=== PATIENT | female | born 1935 | race Caucasian/White ===

== ENCOUNTER 2016-12-22 10:15 | Emergency (ER) | payer OTHER, BC ==
[~2016-12-22] VITALS: Ht 152.4 cm; Wt 45.4 kg
[~2016-12-22 10:15] MED LIST: ACETAMINOPHEN325 M1 PO; ALENDRONATE SOD70 MG PO; AMBIEN 5 MG TABL5 M1 PO; AMLODIPINE BESYL5 MG PO; AMOXICILLIN 25250 M1; APAP500 PO; ASPIR 8181 MG PO; ATIVAN0.5 MG PO; BUDEPRION XL300 MG PO; BUPROPION HCL200 MG PO; BUPROPION XL300 MG PO; BUSPAR 5 MG TABL5 M1; BUSPAR 5 MG TABL5 M1 PO; BUSPAR15 MG PO; BUSPIRONE HCL10 MG PO; CARDURA1 MG; CARDURA2 MG PO; CENTRUM SILVER1 EAC1 PO; CENTRUM SILVER1 EAC4 PO; CHLORTHALIDONE25 MG PO; CIPRO500 MG PO; CITRACAL + D C1 EACH PO; CITRACAL + D M1 EACH PO; CITRACAL PLUS1 EACH PO; CLEOCIN HCL150 MG PO; CLINORIL200 MG PO; CYMBALTA30 MG PO; CYMBALTA60 MG PO; DERMACINRX5000 UNIT PO; EX-LAX MAXIMUM25 MG PO; EX-LAX15 M1 PO; FLAGYL500 MG PO; FOSAMAX 70 MG T70 M1 PO; FOSAMAX 70 MG T70 MG PO; FUROSEMIDE 40 M40 M1 PO; GABAPENTIN 100100 MG PO; GALZIN25 MG PO; IBUPROFEN 200200 M1 PO; K-DUR 20 MEQ T20 MEQ PO; KEFLEX500 MG PO; LASIX 40 MG TAB40 M2 PO; LEVOTHYROXIN0.112 M1 PO; LEVOTHYROXINE0.05 MG PO; LIPITOR40 MG PO; LISINOPRIL20 MG PO; LISINOPRIL40 MG PO; LOPRESSOR 50 MG50 M1 PO; MIRALAX17 GM PO; NITROGLYCERIN0.4 MG SL; NORCO 5-325 TA1 EACH PO; NORVASC 2.5 MG2.5 MG PO; PANTOPRAZOLE SO40 M1 PO; PINDOLOL10 MG PO; PLAVIX 75 MG TA75 M1 PO; PRAVACHOL20 MG PO; PROTONIX40 M2 PO; RAPAFLO8 MG PO; RISPERDAL0.25 MG PO; SENNA8.6 MG PO; SULINDAC 200MG200 M1 PO; TEGRETOL XR100 MG PO; TYLENOL325 MG PO; ULTRAM 50MG TAB50 MG PO; VITAMIN D32000 UNI1 PO; VITAMIN D35000 UNIT PO; ZINC CHELATE50 MG PO; ZINC GLUCONATE50 MG PO; ZINC50 MG PO; ZOFRAN ODT4 MG PO
[2016-12-22 10:17] VITALS: BP 140/81
[2016-12-22] MEDS ORDERED: NORCO 5-325 TA1 EACH PO (11:55)
== END 2016-12-22 12:13 | disposition home or self-care (01) ==
LOC: ER 10:15
DX: S32.058A Other fracture of fifth lumbar vertebra, initial encounter for closed fracture (principal); I10 Essential (primary) hypertension; E03.9 Hypothyroidism, unspecified; F41.9 Anxiety disorder, unspecified; Z98.890 Other specified postprocedural states; F10.99 Alcohol use, unspecified with unspecified alcohol-induced disorder; W18.39XA Other fall on same level, initial encounter; Y93.89 Activity, other specified; Y92.89 Other specified places as the place of occurrence of the external cause; Y99.8 Other external cause status

== ENCOUNTER 2016-12-25 16:08 | Inpatient (IN) | payer OTHER, BC ==
[~2016-12-25] VITALS: Ht 149.9 cm; Wt 48.1 kg
--- NOTE | ~2016-12-25 | D ---
[facility] [address] [place] [address] DISCHARGE SUMMARY Name: IRINA RADFORD Room #: 423-1 [facility] IN M.R.#: [id number] Admission: 12/25/16 Attend Phys: Eloy Low MD Discharge: 12/29/16 Date of : 31 Report #: [id number] THIS REPORT FOR: //name// CC: Bijal Low DATE OF SERVICE: 12/29/2016 SUMMARY OF HISTORY AND PHYSICAL: The patient gave a variable history, but was most consistent to a fall occurring on the day after 's , 12/04/2016. The pain initially was bothersome, but slowly progressed and even had an office appointment with me in my office to discuss other matter and she did not mention the pain from the fall. However, it was so severe she went to the emergency room on 12/22/2016. Because of the pain, was given pain medications and found to have an age-indeterminant compression fracture of L5 and returned to her home. However, the pain persisted and became so severe that she presented to the emergency room again with severe pain on 12/25/2016 and required admission. SUMMARY OF HOSPITAL COURSE: She was admitted and placed on intravenous fentanyl, gabapentin, hydrocodone and oxycodone. On these medications, her pain was controlled. She was seen in interventional radiology consultation by Dr. Snyder, who found her to be suffering from 2 nondisplaced insufficiency fractures of the sacrum. He treated these with bilateral sacroplasty procedure on 12/28/2016, with good results and significant improvement in her pain. Arrangements were made for a [facility] rehabilitation stay at [facility]. In addition, she was found to be in unexpectedly hypoxic. Arterial blood gas on room air showed a pH of 7.429, pCO2 of 37.1 and pO2 of 44.6 with a measured oxygen saturation of 81.8%. It was repeated with essentially the same values. Pulmonary medicine consultation by Dr. Kunz noted atelectasis and a history of COPD. She responded to pulmonary toilet and that included EZPAP. The following day, she required much less oxygen. She actually denied shortness of breath. Blood pressure was mildly variable while in the hospital of 121/61 initially, 140/78 prior to discharge. Her pulse varied from 92 to 104. She was afebrile. She was 96% on room air prior to discharge. A very small pleural effusion was identified, but a thoracentesis was not felt to be technically feasible and was cancelled. Creatinine 0.9 on admission, at baseline. Albumin was 2.3 on admission, [address] [address] DISCHARGE SUMMARY Name: IRINA RADFORD Room #: 423-1 [facility] IN M.R.#: [id number] Admission: 12/25/16 Attend Phys: Eloy Low MD Discharge: 12/29/16 Date of : 33 Report #: [id number] qualifying for severe malnutrition. Hemoglobin was stable at 10.0, close to baseline for her. Urinalysis was negative. CT arteriogram of the chest was compared with a study from a month earlier and did note moderate pleural effusions. Compressive atelectasis was identified and was felt not to be an infiltrate. Moderate chronic pulmonary changes were seen. A Reveal device over the left upper chest was in place (this device does not have attached electrodes). MRI of the lumbar spine showed chronic changes with a superior endplate compression of T11. Multilevel disk desiccation was seen. There was no significant central spinal canal stenoses. There was also an absence of neural foraminal stenoses from T12-L1. Multilevel lumbar spondylosis was seen. MRI of the pelvis demonstrated acute nondisplaced sacral insufficiency fractures, one on each side. DISCHARGE DIAGNOSES: 1. Toxic encephalopathy - the patient's pain was so severe that she was confused and inconsistent on her history and desperate on admission, with pain medication and her sacroplasty. Her memory and cognitive function improved. 2. Severe malnutrition. Albumin 2.3 was present on admission. 3. Acute bilateral nondisplaced insufficiency fractures of the sacrum that are consistent with her history of having occurred 12/04/2016. These are bilateral osteoporotic fractures. 4. Stable, severe, treated peripheral vascular disease of both legs. 5. Chronic constipation. 6. Stable chronic anemia. 7. Hypoxemia, unexpected, largely improved due to an element of atelectasis. 8. Chronic obstructive pulmonary disease. 9. Osteoporosis. 10. Other multiple medical problems as mentioned in the history and physical. PLAN: The patient is transferred for skilled rehabilitation at [facility]. Hydrocodone 5/325 one 4 times a day as needed for severe pain, 10 tablets as well as tramadol 50 mg one 4 times a day as needed for pain. Physical therapy and occupational therapy. Gabapentin 100 mg 3 times daily, lactulose syrup 40 gram dose every 2 hours as needed for constipation, Senokot twice daily, Colace twice daily, MiraLax once daily on a regular basis, pantoprazole 40 mg daily and Ipratropium/albuterol 4 times daily by nebulizer. She is also to continue bupropion 300 mg XL daily, buspirone 10 mg twice daily, [facility] [address] [place] [address] DISCHARGE SUMMARY Name: IRINA RADFORD Room #: 423-1 DIS IN M.R.#: [id number] Admission: 12/25/16 Attend Phys: Eloy Low MD Discharge: 12/29/16 Date of : 33 Report #: [id number] duloxetine 60 mg, calcium with vitamin D once daily, alendronate 70 mg every Tuesday, sulindac 200 mg twice daily, acetaminophen, amlodipine 2.5 mg once daily for hypertension, furosemide 40 mg once daily on a p.r.n. basis for swelling of the left foot, 50 mg of Zinc daily, 81 mg of aspirin daily, atorvastatin 40 mg once daily and clopidogrel 75 mg once daily. She is referred to the medical service of Dr. Shani Thompson. She is to see Dr. Maikol Kunz in pulmonary medicine in his office in 1 week. She is to return to see me in my office 1-2 weeks after she returns home. By: [id number] Eloy Low MD /nt
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
--- NOTE | ~2016-12-25 | HC ---
[facility] [place] [address] [place] [address] CONSULTATION Name: IRINA RADFORD Room #: 423-1 ADM IN M.R.#: [id number] Admission: 12/25/16 Attend Phys: Eloy Low MD Discharge: Date of : 33 Report #: [id number] THIS REPORT FOR: //name// CC: Eloy Low DATE OF SERVICE: 12/27/2016 REASON FOR CONSULTATION: Atelectasis and hypoxia. IMPRESSION: 1. Atelectasis and hypoxia. 2. History of tobacco exposure with history of chronic obstructive pulmonary disease. 3. Osteoporosis. 4. Nondisplaced sacral insufficiency fractures, T11, [id number] chronic superior plate compression. PLAN: We will use a sat monitor. I do not think this is fat emboli and at this point late in course, order corticosteroids and an associated wound of her osteoporosis may likely be not been official. I do not feel she has aspiration. We will rule out pulmonary emboli and encourage good pulmonary toilet. HISTORY OF PRESENT ILLNESS: An 81-year-old female fell on 's Day, admitted because of pain. During her stay, she has had pain meds, has had decreased sat. She denies shortness of breath or sputum production. CURRENT MEDICATIONS: Include duloxetine, Wellbutrin, Lipitor, gabapentin, buspirone, Colace, oxycodone, fentanyl and Zofran. SOCIAL HISTORY: Negative tobacco, but exposed. Lives with family member. FAMILY HISTORY: No early lung disease. REVIEW OF SYSTEMS: Ischemic colitis, OCD, history of alcohol use, atherosclerotic vascular disease, history of syncope and fall, evaluated by in the past. PHYSICAL EXAMINATION: VITAL SIGNS: On exam, T-max 99.3, pulse 79, respirations 20 and BP 144/71. EYES: Negative icterus. NECK: Trachea midline. LUNGS: Decreased bilaterally. No wheeze or rhonchi. HEART: Regular. ABDOMEN: Bowel sounds present. EXTREMITIES: Show no edema. [facility] [address] [place] [address] CONSULTATION Name: IRINA RADFORD Room #: [facility] ADM IN M.R.#: [id number] Admission: 12/25/16 Attend Phys: Eloy Low MD Discharge: Date of : 33 Report #: [id number] She has been treated by Dr. Shore for peripheral arterial disease, I believe. Had had a CT in November, negative for embolus or dissection. Posterior apical scarring was noted. Echo in 2011 showed a PA systolic of 33. Grade 1 diastolic dysfunction. EF 55% to 60%. They had placed a monitor; however, it did not show arrhythmia. ProBNP 463. LABORATORY DATA: A pH of 7.45, pCO2 of 38 and pO2 of 45 on room air. Lactate 0.86. Chest x-ray showed small effusions, bibasilar infiltrate. A pH of 7.43, pCO2 of 37 and pO2 of 45 on room air. White count 9.1, hemoglobin 9.3 and platelets 253,000. We will follow closely with you. <ELECTRONICALLY SIGNED> By: Ezra Kunz MD 12/28/16 1036 [id number] [id number] Ezra Kunz MD /nt
[2016-12-25 16:18] VITALS: BP 130/71
[2016-12-25 18:10] LABS: URINE BILIRUBIN NEGATIVE (Negative); URINE BLOOD NEGATIVE (Negative); URINE COLOR YELLOW; URINE GLUCOSE-RANDOM* NEGATIVE (Negative); URINE KETONES NEGATIVE (Negative); URINE LEUKOCYTES-REFLEX NEGATIVE (Negative); URINE PROTEIN (DIPSTICK) NEGATIVE (Negative); URINE SPECIFIC GRAVITY <= 1.005 (1.003-1.035); URINE UROBILINOGEN 0.2 E.U./dl (0.2-1.0)
[2016-12-25 18:24] LABS: HEMATOCRIT 29.9 % (37.0-47.0); HEMOGLOBIN 10.3 gm/dL (12.0-15.0); MCH 33.3 pg (26.0-34.0); MCHC 34.3 g/dL (28.0-37.0); MCV 96.9 fL (80.0-100.0); RBC 3.08 mil/uL (4.20-5.00); RDW 14.6 % (10.5-14.5); WBC 11.4 thou/uL (4.0-11.0)
[2016-12-25 18:31] LABS: CALCIUM 8.7 mg/dL (8.5-10.1); CREATININE 0.9 mg/dL (0.6-1.0); POTASSIUM 3.8 mmol/L (3.5-5.1)
[2016-12-25 18:38] LABS: APTT 33.1 Seconds (24.5-32.8); INR 1.1
[2016-12-25 19:25] VITALS: BP 130/80
[2016-12-25 20:30] VITALS: BP 116/82; BP 129/65
[2016-12-26 04:30] VITALS: BP 115/92
[2016-12-26 07:36] VITALS: BP 104/62
[2016-12-26 16:13] VITALS: BP 122/77
[2016-12-26 20:40] VITALS: BP 121/61
[2016-12-27 04:00] VITALS: BP 122/58
[2016-12-27 05:29] LABS: HEMATOCRIT 27.1 % (37.0-47.0); HEMOGLOBIN 9.3 gm/dL (12.0-15.0); MCH 33.6 pg (26.0-34.0); MCHC 34.2 g/dL (28.0-37.0); MCV 98.4 fL (80.0-100.0); PLATELET COUNT 253 thou/uL (150-400); RBC 2.75 mil/uL (4.20-5.00); RDW 14.4 % (10.5-14.5); WBC 9.1 thou/uL (4.0-11.0)
[2016-12-27 05:32] LABS: MANUAL DIFF YES
[2016-12-27 05:56] LABS: ALBUMIN 2.3 g/dL (3.4-5.0); CALCIUM 7.9 mg/dL (8.5-10.1); CREATININE 0.8 mg/dL (0.6-1.0); POTASSIUM 3.6 mmol/L (3.5-5.1); TOTAL BILIRUBIN 0.3 mg/dL (<0.1-1.0)
[2016-12-27 07:37] VITALS: BP 121/61
[2016-12-27 08:50] LABS: ABSOLUTE NEUTROPHILS 7.6 thou/uL (1.4-8.2); TOTAL CELL COUNT 100
[2016-12-27 08:51] LABS: ANISOCYTOSIS 1+; OVALOCYTES FEW
[2016-12-27 13:40] LABS: ABG SAMPLE TYPE ARTERIAL; BE(vivo) -0.1 mmol/L (-2 to +3); LACTATE 1.48 mmol/L (0.5-2.0); O2(CT) 12.3 mL/dL (15.0-23.0); O2Hb 81.8 % (92.0-98.0); PCO2 37.1 mmHg (35.0-45.0); PO2 44.6 mmHg (80.0-100.0); STICK SITE R.BRACHIAL; pH 7.429 (7.360-7.450); sO2 82.1 % (92.0-98.0); tCO2 25.2 mmol/L (24.0-30.0)
[2016-12-27 14:46] VITALS: BP 144/71
[2016-12-27 14:46] LABS: ABG SAMPLE TYPE ARTERIAL; BE(vivo) 1.7 mmol/L (-2 to +3); HCO3 25.7 mmol/L (22.0-26.0); LACTATE 0.86 mmol/L (0.5-2.0); O2(CT) 13.2 mL/dL (15.0-23.0); pH 7.448 (7.360-7.450); sO2 83.2 % (92.0-98.0); tCO2 26.9 mmol/L (24.0-30.0)
[2016-12-27 14:48] LABS: STICK SITE rr
[2016-12-27 15:01] LABS: NT-PRO BRAIN NAT PEPTIDE 463 pg/mL (<300); TROPONIN-I < 0.04 ng/mL (<0.04-0.07)
[2016-12-27 20:00] VITALS: BP 162/82
[2016-12-28 03:26] VITALS: BP 157/84
[2016-12-28 05:59] LABS: HEMATOCRIT 28.8 % (37.0-47.0); MCH 33.8 pg (26.0-34.0); MCHC 34.7 g/dL (28.0-37.0); MCV 97.5 fL (80.0-100.0); RBC 2.95 mil/uL (4.20-5.00); RDW 14.4 % (10.5-14.5); WBC 9.2 thou/uL (4.0-11.0)
[2016-12-28 06:09] LABS: INR 1.1; PROTIME 10.9 Seconds (9.3-11.4)
[2016-12-28 07:25] VITALS: BP 157/84
[2016-12-28 08:40] VITALS: BP 143/78
[2016-12-28 15:55] VITALS: BP 144/87
[2016-12-28 17:48] VITALS: BP 156/70
[2016-12-28 20:00] VITALS: BP 168/93
[2016-12-29 04:00] VITALS: BP 163/83
[2016-12-29 07:15] VITALS: BP 144/80
[2016-12-29] MEDS ORDERED: MIRALAX17 GM PO (13:09)
[2016-12-29] MEDS ORDERED: LACTULOSE10 GM/153 PO (13:09)
[2016-12-29] MEDS ORDERED: SENNA PO (13:09)
[2016-12-29] MEDS ORDERED: HYDROCODON-ACE1 EAC7 PO (13:09)
[2016-12-29] MEDS ORDERED: GABAPENTIN 100100 MG PO (13:09)
[2016-12-29] MEDS ORDERED: PROTONIX40 M1 PO (13:09)
[2016-12-29] MEDS ORDERED: COLACE 100 MG100 MG PO (13:09)
[2016-12-29] MEDS ORDERED: DUONEB 2.5-0.5 M3 ML INH (13:13)
[2016-12-29] MEDS ORDERED: TRAMADOL 50 MG50 MG PO (13:13)
[2016-12-29] MEDS ORDERED: OXYGEN MISCELL (13:15)
[2016-12-29 15:42] VITALS: BP 140/78
== END 2016-12-29 17:07 | DRG 515 ==
LOC: ER 16:08 → EROBS 17:08 → 4E 17:08
PROVIDERS: Emergency Medicine; Internal Medicine; Internal Medicine Pulmonary Disease; Radiology Vascular & Interventional Radiology
PROC: 0QS13ZZ Reposition Sacrum, Percutaneous Approach (ICD-10-PCS; principal; 2016-12-28)
PROC: 0QU13JZ Supplement Sacrum with Synthetic Substitute, Percutaneous Approach (ICD-10-PCS; principal; 2016-12-28)
DX: M48.56XA Collapsed vertebra, not elsewhere classified, lumbar region, initial encounter for fracture (principal); G92 Toxic encephalopathy; E43 Unspecified severe protein-calorie malnutrition; J98.11 Atelectasis; S32.10XA Unspecified fracture of sacrum, initial encounter for closed fracture; I10 Essential (primary) hypertension; E03.9 Hypothyroidism, unspecified; M19.90 Unspecified osteoarthritis, unspecified site; M81.0 Age-related osteoporosis without current pathological fracture; J44.9 Chronic obstructive pulmonary disease, unspecified; F41.9 Anxiety disorder, unspecified; I73.9 Peripheral vascular disease, unspecified; K59.09 Other constipation; D63.8 Anemia in other chronic diseases classified elsewhere; F32.9 Major depressive disorder, single episode, unspecified; Z68.21 Body mass index [BMI] 21.0-21.9, adult; Z89.422 Acquired absence of other left toe(s); Z98.42 Cataract extraction status, left eye; Z98.41 Cataract extraction status, right eye

== ENCOUNTER → 2017-01-11 | Outpatient (CLI) | payer OTHER, BC ==
[~2017-01-11] MED LIST changes: +COLACE 100 MG100 MG PO; +DUONEB 2.5-0.5 M3 ML INH; +HYDROCODON-ACE1 EAC7 PO; +LACTULOSE10 GM/153 PO; +OXYGEN MISCELL; +PROTONIX40 M1 PO; +SENNA PO; +TRAMADOL 50 MG50 MG PO
== END ==
LOC: RAD 12:45
DX: M47.896 Other spondylosis, lumbar region (principal); M48.06 Spinal stenosis, lumbar region; J18.9 Pneumonia, unspecified organism

== ENCOUNTER 2017-01-14 00:27 | Inpatient (IN) | payer OTHER, BC ==
[2017-01-14] VITALS (8 sets, daily range): BP systolic 97–143; BP diastolic 44–80
[~2017-01-14] VITALS: Ht 152.4 cm; Wt 47.9 kg
--- NOTE | ~2017-01-14 | H ---
[facility] [address] [place] [address] HISTORY AND PHYSICAL Name: IRINA RADFORD Room #: 303-P ADM IN M.R.#: [id number] Admission: 01/14/17 Attend Phys: Eloy Low MD Discharge: Date of : 33 Report #: [id number] THIS REPORT FOR: //name// CC: Eloy Low DATE OF SERVICE: 01/14/2017 CHIEF COMPLAINT: Syncope after a bowel movement. HISTORY OF PRESENT ILLNESS: Information is taken from both the patient and the Emergency Room record. She reports having had a normal bowel movement and then standing up off of the toilet and then suddenly finding herself on the floor. Her forehead hurt and she had pain in her neck and her right shoulder, where she landed on the floor. She required admission for further evaluation and therapy. PAST MEDICAL HISTORY: She was most recently admitted 12/25/2016 to 12/29/2016 because of severe low back pain. She fell on 12/04/2016, but did not have severe pain right away. However, the pain slowly persisted, and became severe enough that she was unable to tolerate it and presented to Emergency Room on 12/25/2016. Please see the details regarding that hospital stay. She was found to have new bilateral vertical sacral insufficiency fracture says the cause of her pain. She had old compression fractures of the vertebral bodies, identified by MRI scanning. She underwent a sacroplasty with the cement, her pain improved and she was transferred to snf facility for further strengthening, from which she returned to her home just recently. During that hospital stay there was an episode of her being unexpectedly severely hypoxic without an etiology having been identified. CT for PE was negative. She responded rapidly to EzPAP and aerosolized bronchodilators. She has severe osteoporosis and history of multiple falls and multiple fractures. She has stable severe treated peripheral vascular disease of both legs, chronic constipation, chronic stable anemia, moderately severe COPD and severe osteoporosis. She has obsessive compulsive tendencies and chronic depression. She has had several episodes of ischemic colitis, chronic laxative dependency, atypical depression, distant history of excessive alcohol use, diffuse atherosclerotic disease and a CT arteriogram of July 2012 showed all of her vessels to be open and nonspecific neurogenic disorder was described by Dr. Barraza in March of 2012 (see the hospital record), multiple episodes of syncope and fall, also multiple fractures as reviewed in her discharge summary 04/03/2015. A tilt table evaluation on 08/07/2012 because of recurrent episodes of syncope was negative. Echocardiogram on 01/30/2012 was normal except for grade 1 diastolic dysfunction, mild left ventricular hypertrophy with a normal ejection [address] [address] HISTORY AND PHYSICAL Name: IRINA RADFORD Room #: 303-P [facility] IN .R.#: [id number] Admission: 01/14/17 Attend Phys: Eloy Low MD Discharge: Date of : 33 Report #: [id number] fraction of 55% to 60%. Carotid ultrasound April 14, 2016 was negative for stenosis and plaque. CURRENT MEDICATIONS: Tylenol, alendronate 70 mg on Wednesdays, amlodipine 2.5 mg once a day, 81 mg of aspirin, 75 mg of Plavix, amlodipine 2.5 mg once daily, 81 mg aspirin daily, atorvastatin 40 mg daily, bupropion XL 300 mg over a 24-hour period, one in the morning buspirone 10 mg once daily as needed for anxiety, calcium with vitamin D one tablet once daily, levothyroxine 0.05 once daily, oxygen as needed at night, sennosides as needed for constipation, tramadol 50 mg 1 as needed for constipation. PHYSICAL EXAMINATION: GENERAL: Shows an 81-year-old female appearing much older than her stated age. She is awake and alert and oriented; however. HEENT: Unremarkable. NECK: Negative. LUNGS: Breath sounds were slightly diminished posteriorly, but returned to normal after several deep inspirations. CARDIOVASCULAR: S1 and S2 are normal. ABDOMEN: Soft, nontender without hepatosplenomegaly or masses. EXTREMITIES: There is no significant edema in the ankles of the feet. Imaging of the right shoulder shows a right distal clavicle fracture, this is nondisplaced, posterior right 2nd rib fractures, nondisplaced and 8th rib fracture is present and the left first rib fracture is present as well. These areas are all tender with movement and weightbearing. Antiplatelet medications are being continued. She is being monitored for late headache, changes for head injury. ASSESSMENT: 1. Micturition/defecation syncope. 2. Multiple fractures as noted above around the right shoulder mechanism and the neck. 3. Closed head injury. 4. Likely orthostatic hypotension of the elderly. 5. Severe osteoporosis. 6. Recent sacral insufficiency fractures on 11/24/2016. 7. Severe peripheral vascular disease, lower extremities. 8. Chronic obstructive pulmonary disease ordinarily not requiring daily medication. 9. Leukocytosis with a white blood cell count of 24,000 along with a left shift. 10. Abnormal urinalysis. 11. Volume depletion. 12. Other medical problems as in the history and physical. [facility] [address] [place] [address] HISTORY AND PHYSICAL Name: IRINA RADFORD Room #: 303-P ADM IN ..#: [id number] Admission: 01/14/17 Attend Phys: Eloy Low MD Discharge: Date of : 33 Report #: [id number] PLAN: The patient is admitted. Currently 5/325 mg of oxycodone adequate to relieve her pain for a period of time, enabling her to be more mobile and to participate in therapies. With her elevated white count, we will continue Rocephin 1 gram IV every 24 hours waiting, following serial laboratory tests for the clinical course unfold. Orthostatic blood pressure checks. With her severe peripheral vascular disease in her legs, tight stockings are relatively contraindicated. She will be seeing Physical Therapy and Occupational Therapy, and medical case manager is helping the family locate a snf facility. That is acceptable. She requests a "try once" regarding resuscitation. By: [id number] Eloy Low MD /nt
--- NOTE | ~2017-01-14 | D ---
[facility] [place] [address] [place] [address] DISCHARGE SUMMARY Name: IRINA RADFORD Room #: 303-P [facility] IN M.R.#: [id number] Admission: 01/14/17 Attend Phys: Eloy Low MD Discharge: 01/18/17 Date of : 33 Report #: [id number] THIS REPORT FOR: //name// CC: Eloy Low DATE OF SERVICE: 01/18/2017 SUMMARY OF HISTORY AND PHYSICAL: The patient was sitting on the toilet at home and had a bowel movement. She then stood up and lost consciousness, waking on the floor, having hit her head. She landed on her right side and had pain in forehead, her neck and her right shoulder. She required admission for further evaluation and therapy and monitoring because of her closed head injury. SUMMARY OF HOSPITAL COURSE: She was monitored on a telemetry floor and did not have arrhythmias throughout her hospital stay. Her troponins were negative. She was noted to have carotid ultrasound on 04/14/2016, and was negative. Echocardiogram, 01/30/2012, that was normal except for grade 1 diastolic dysfunction and mild left ventricular hypertrophy with a normal ejection fraction of 60%. A tilt table test on 08/07/2012 was negative, and was done because of recurrent episodes of syncope. CT scanning of right shoulder, neck and chest showed right lateral clavicular fracture, acute right second eighth rib fractures, possibly some subacute fractures as well and left first rib fracture. She was seen in consultation by Dr. Papo Torres of the Orthopedic Service, who recommended using a sling and gentle mobilization of patient's right wrist and arm by physical therapy. Her albumin was noted to be 2.4 after rehydration, qualifying for severe malnutrition. She experienced nausea from constipation while in the hospital. Urine culture grew Klebsiella pneumoniae that was sensitive to amikacin, aztreonam, ciprofloxacin, levofloxacin, gentamicin, imipenem, nitrofurantoin, piperacillin/tazobactam, tetracycline, and tobramycin. Because of the constipation, no stool specimens were collected. LABORATORY DATA: Creatinine was baseline at 1.0 and BUN baseline at 14. Alkaline phosphatase was mildly elevated at 162 (46-116). EGFR was baseline at 69 after rehydration. It was low at 53 on admission. Troponin was negative. Iron level was low normal at 62. Iron binding capacity mildly low at 215, percent saturation normal at 29. WBCs were elevated on admission at 24,000, but normalized with the next day at 7500. [address] [address] DISCHARGE SUMMARY Name: IRINA RADFORD Room #: 303-P [facility] IN [facility]#: [id number] Admission: 01/14/17 Attend Phys: Eloy Low MD Discharge: 01/18/17 Date of : 33 Report #: [id number] Hemoglobin was 9.9 on admission, and was stable after rehydration at 7.4. MCV was 96. B12 was 1312, folate was 16.6. Total hydroxyvitamin D was 43. No evidence of acute blood loss was identified while she was in the hospital. DISCHARGE DIAGNOSES: 1. Defecation/micturition syncope. 2. Osteoporosis. 3. Multiple nondisplaced acute fractures around the right shoulder: Distal right clavicle, posterior right second rib, right eight rib and left first rib. 4. Multiple old rib fractures were seen. 5. Sacral insufficiency fracture, treated with sacroplasty 3 weeks earlier. 6. Peripheral vascular disease, on Plavix. 7. Chronic obstructive pulmonary disease. 8. The patient did not experience hypoxia on this admission. 9. Leukocytosis, resolved. 10. Urinary tract infection with Klebsiella pneumoniae with scattered drug resistances. 11. Significant anemia felt to be chronic at the time of discharge. 12. Other multiple medical problems as in the history and physical. 13. Chronic constipation. PLAN: The patient is discharged to a custodial facility, please see Dr. Thompson's discharge summary for specifics regarding the medications. By: [id number] Eloy Low MD /nt
--- NOTE | ~2017-01-14 | EKG ---
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 01/14/17 0834 0151 0 Edwardo Barrios MD, FACC /EPI
--- NOTE | ~2017-01-14 | HC ---
[facility] [place] [address] [place] [address] CONSULTATION Name: IRINA RADFORD Room #: 303-P ADM IN M.R.#: [id number] Admission: 01/14/17 Attend Phys: Eloy Low MD Discharge: Date of : 31 Report #: [id number] THIS REPORT FOR: //name// CC: Eloy Low CHIEF COMPLAINT: Right shoulder pain. HISTORY OF PRESENT ILLNESS: The patient is a very pleasant 81-year-old female, seen today for evaluation of her right shoulder. The patient reports when she was getting from the toilet to stand, and then she suddenly fell and found herself on the floor. The patient struck the right side of her head as well as she also struck the shoulder and reports some bruising over her right hip. She reports a history of multiple falls as well as a recent admission for low back pain. She reports her pain in her back now is tolerable. PAST MEDICAL HISTORY: Significant for recent vertical sacral insufficiency fractures, old compression fractures. She has undergone a sacroplasty with cement, history of osteoporosis, multiple falls, peripheral vascular disease, chronic constipation, anemia, moderately severe COPD, history of obsessive compulsive tendencies, chronic depression, ischemic colitis, diffuse atherosclerotic disease and recurrent syncope. CURRENT MEDICATIONS: Please see current MAR. PHYSICAL EXAMINATION: GENERAL: The patient is alert, oriented and answering questions appropriately. She reports mild discomfort over the right shoulder. EXTREMITIES: She had a dressing to the right posterior side of her scalp/head and she lift her neck easily without any discomfort. Right shoulder demonstrates some mild swelling superiorly, some faint ecchymosis is appearing and she is tender to palpation of the lateral clavicle that appears to be no obvious displacement on gross examination. She has some mild tenderness over the posterior aspect of the thorax and the region of her 2nd and 8th rib fractures. Gentle passive range of motion of the shoulder caused no undue discomfort. The arm itself appeared normal without deformity. She has an abrasion with the dressing over the lateral aspect of the elbow. She is nontender with gentle motion of the elbow including rotation. The forearm, wrist and hand appear normal other than chronic arthrosis of the hand. She reported that she is neurovascularly intact. She reports no acute injuries to the left upper extremity. PELVIS: Seem stable to AP and lateral compression. Gentle hip, knee, ankle, and leg movement have caused no discomfort. RADIOGRAPHS: CT scan revealed nondisplaced right lateral clavicle fracture with slight winding of the acromioclavicular joint. The CC interspace appears normal. There is a healed chronic fracture formed in the middle third of the right clavicle. Second and eighth rib fracture is noted. [place] [address] CONSULTATION Name: IRINA RADFORD Room #: 303-P ADM IN M.R.#: [id number] Admission: 01/14/17 Attend Phys: Eloy Low MD Discharge: Date of : 31 Report #: [id number] the chest reveals the 2nd rib fracture and some subacute fractures of the rib. IMPRESSION: 1. Right lateral clavicle fracture. 2. Right 2nd and 8th rib fractures, nondisplaced. 3. History of multiple falls. 4. Multiple comorbidities. PLAN: We reviewed treatment options, the patient may utilized a sling or shoulder mobilizer for comfort health maintenance symptoms. Activity guidelines and precautions were reviewed. We try and have her remain nonweightbearing on this. They can continue local wound care for her abrasions. PT can perform gentle motion on the wrist, elbow and hand. Gentle internal and external rotation of the shoulder and will limit forward elevation until she has had some more fracture healing. No other obvious abnormalities of the shoulder noted such as rotator cuff tear. We will continue to follow her with you and eventually see her as an outpatient for followup with radiographs. Thank you for this referral. <ELECTRONICALLY SIGNED> By: Papo Torres MD 01/16/17 0901 [id number] [id number] Papo Torres MD /nt
[2017-01-14 01:22] LABS: HEMATOCRIT 29.2 % (37.0-47.0); HEMOGLOBIN 9.9 gm/dL (12.0-15.0); MCH 32.6 pg (26.0-34.0); MCHC 33.7 g/dL (28.0-37.0); MCV 96.7 fL (80.0-100.0); PLATELET COUNT 390 thou/uL (150-400); RBC 3.02 mil/uL (4.20-5.00); RDW 14.3 % (10.5-14.5); WBC 24.1 thou/uL (4.0-11.0)
[2017-01-14 01:28] LABS: MANUAL DIFF YES
[2017-01-14 01:37] LABS: ANION GAP 6 mmol/L (7-16); BUN 14 mg/dL (7-18); CALCIUM 9.1 mg/dL (8.5-10.1); CHLORIDE 102 mmol/L (98-107); CO2 29 mmol/L (21-32); GLUCOSE 104 mg/dL (74-106); POTASSIUM 3.9 mmol/L (3.5-5.1); SODIUM 137 mmol/L (136-145)
[2017-01-14 01:45] LABS: TROPONIN-I < 0.04 ng/mL (<0.04-0.07)
[2017-01-14] MEDS ORDERED: LEVOTHYROXINE0.05 MG PO (02:53)
[2017-01-14] MEDS ORDERED: CYCLOBENZAPRINE5 MG (02:55)
[2017-01-14] MEDS ORDERED: LACTULOSE20 GM/30 M PO (02:55)
[2017-01-14] MEDS ORDERED: SENNA CONCENTR8.6 MG PO (02:57)
[2017-01-14 03:16] LABS: URINE BILIRUBIN NEGATIVE (Negative); URINE BLOOD NEGATIVE (Negative); URINE COLOR YELLOW; URINE GLUCOSE-RANDOM* NEGATIVE (Negative); URINE KETONES NEGATIVE (Negative); URINE LEUKOCYTES-REFLEX 1+ (Negative); URINE PROTEIN (DIPSTICK) NEGATIVE (Negative); URINE UROBILINOGEN 0.2 E.U./dl (0.2-1.0)
[2017-01-14 03:36] LABS: ABSOLUTE NEUTROPHILS 22.7 thou/uL (1.4-8.2); ANISOCYTOSIS SLIGHT; TOTAL CELL COUNT 100
[2017-01-14 03:38] LABS: WBC CLUMPS Occasional (None Seen)
[2017-01-14 03:40] LABS: CASTS None Seen /LPF (None Seen); CRYSTALS None Seen /LPF (None Seen); SQUAMOUS None Seen /LPF (0-3); URINE RBC None Seen /HPF (0-2)
[2017-01-15 04:25] VITALS: BP 124/60
[2017-01-15 05:09] LABS: ALBUMIN 2.7 g/dL (3.4-5.0); CALCIUM 7.6 mg/dL (8.5-10.1); CREATININE 0.8 mg/dL (0.6-1.0); POTASSIUM 3.8 mmol/L (3.5-5.1); TOTAL BILIRUBIN 0.2 mg/dL (<0.1-1.0); TOTAL PROTEIN 6.1 g/dL (6.4-8.2)
[2017-01-15 05:57] LABS: HEMATOCRIT 21.9 % (37.0-47.0); MCH 33.4 pg (26.0-34.0); MCHC 34.1 g/dL (28.0-37.0); MCV 97.9 fL (80.0-100.0); RBC 2.23 mil/uL (4.20-5.00); RDW 14.8 % (10.5-14.5)
[2017-01-15 06:40] LABS: WBC 7.5 thou/uL (4.0-11.0)
[2017-01-15 06:41] LABS: HEMOGLOBIN 7.5 gm/dL (12.0-15.0)
[2017-01-15 08:11] VITALS: BP 132/57
[2017-01-15 12:01] VITALS: BP 120/59
[2017-01-15 15:29] VITALS: BP 132/62
[2017-01-15 19:17] VITALS: BP 147/65
[2017-01-16 03:38] VITALS: BP 134/54
[2017-01-16 04:06] LABS: HEMATOCRIT 21.3 % (37.0-47.0); HEMOGLOBIN 7.4 gm/dL (12.0-15.0); MCH 33.7 pg (26.0-34.0); MCHC 34.8 g/dL (28.0-37.0); RBC 2.19 mil/uL (4.20-5.00); RDW 14.6 % (10.5-14.5); WBC 7.8 thou/uL (4.0-11.0)
[2017-01-16 04:20] LABS: % SATURATION 29 % (20-39); IRON 62 ug/dL (50-170); TIBC 215 ug/dL (250-450); UIBC 153 ug/dL
[2017-01-16 04:45] LABS: FOLIC ACID 16.6 ng/mL (8.6-58.9)
[2017-01-16 07:20] VITALS: BP 131/65
[2017-01-16 11:05] VITALS: BP 137/74
[2017-01-16 15:30] VITALS: BP 158/60
[2017-01-16 19:20] VITALS: BP 137/78
[2017-01-17 03:40] VITALS: BP 130/69
[2017-01-17 09:00] VITALS: BP 136/68
[2017-01-17 12:42] VITALS: BP 129/66
[2017-01-17 17:52] VITALS: BP 147/72
[2017-01-17 19:49] VITALS: BP 136/69
[2017-01-18 04:11] VITALS: BP 158/74
[2017-01-18 06:33] LABS: HEMATOCRIT 20.9 % (37.0-47.0); HEMOGLOBIN 7.3 gm/dL (12.0-15.0)
[2017-01-18 07:55] VITALS: BP 141/76
[2017-01-18] MEDS ORDERED: CIPRO250 M1 PO (09:25)
[2017-01-18] MEDS ORDERED: ENOXAPARIN30 MG/0.1 SUBQ (09:26)
[2017-01-18] MEDS ORDERED: CYMBALTA60 MG PO (09:27)
[2017-01-18] MEDS ORDERED: MIRALAX17 GM PO (09:29)
[2017-01-18] MEDS ORDERED: HYDROCODON-ACE1 EAC7 PO (09:30)
[2017-01-18 11:50] VITALS: BP 142/78
== END 2017-01-18 16:48 | DRG 183 ==
LOC: ER 00:27 → EROBS 03:19 → 3N 03:19
PROVIDERS: Emergency Medicine; Internal Medicine; Nurse Practitioner
PROC: 0HQDXZZ Repair Right Lower Arm Skin, External Approach (ICD-10-PCS; principal; 2017-01-14)
DX: S22.41XA Multiple fractures of ribs, right side, initial encounter for closed fracture (principal); E43 Unspecified severe protein-calorie malnutrition; R55 Syncope and collapse; S22.32XA Fracture of one rib, left side, initial encounter for closed fracture; S42.031A Displaced fracture of lateral end of right clavicle, initial encounter for closed fracture; S51.011A Laceration without foreign body of right elbow, initial encounter; S01.01XA Laceration without foreign body of scalp, initial encounter; I10 Essential (primary) hypertension; E03.9 Hypothyroidism, unspecified; M19.90 Unspecified osteoarthritis, unspecified site; N30.90 Cystitis, unspecified without hematuria; B96.1 Klebsiella pneumoniae [K. pneumoniae] as the cause of diseases classified elsewhere; Z16.30 Resistance to unspecified antimicrobial drugs; K59.09 Other constipation; D64.9 Anemia, unspecified; R09.02 Hypoxemia; R39.198 Other difficulties with micturition; F32.9 Major depressive disorder, single episode, unspecified; F41.9 Anxiety disorder, unspecified; F42.9 Obsessive-compulsive disorder, unspecified; M81.0 Age-related osteoporosis without current pathological fracture; J44.9 Chronic obstructive pulmonary disease, unspecified; I73.9 Peripheral vascular disease, unspecified; W18.30XA Fall on same level, unspecified, initial encounter; Z79.02 Long term (current) use of antithrombotics/antiplatelets; Z79.82 Long term (current) use of aspirin; Z79.899 Other long term (current) drug therapy; Z86.73 Personal history of transient ischemic attack (TIA), and cerebral infarction without residual deficits; Z87.828 Personal history of other (healed) physical injury and trauma; Z98.42 Cataract extraction status, left eye; Z98.41 Cataract extraction status, right eye; Z89.422 Acquired absence of other left toe(s); Y93.89 Activity, other specified; Y92.091 Bathroom in other non-institutional residence as the place of occurrence of the external cause; Y99.8 Other external cause status; Z23 Encounter for immunization
CPT/HCPCS: 10096

== ENCOUNTER 2017-04-20 14:40 | Emergency (ER) | payer OTHER, BC ==
[~2017-04-20] VITALS: Ht 149.9 cm; Wt 52.2 kg
--- NOTE | ~2017-04-20 | EKG ---
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
[~2017-04-20 14:40] MED LIST changes: +CIPRO250 M1 PO; +CYCLOBENZAPRINE5 MG; +ENOXAPARIN30 MG/0.1 SUBQ; +LACTULOSE20 GM/30 M PO; +SENNA CONCENTR8.6 MG PO
[2017-04-20] MEDS ORDERED: UNICOMPLEX M TA1 TA1 PO (15:17)
[2017-04-20 15:31] LABS: HEMATOCRIT 31.5 % (37.0-47.0); HEMOGLOBIN 10.9 gm/dL (12.0-15.0); MCH 33.7 pg (26.0-34.0); MCHC 34.7 g/dL (28.0-37.0); MCV 97.2 fL (80.0-100.0); PLATELET COUNT 250 thou/uL (150-400); RBC 3.23 mil/uL (4.20-5.00); WBC 8.8 thou/uL (4.0-11.0)
[2017-04-20 15:33] LABS: MANUAL DIFF YES
[2017-04-20 15:36] LABS: ANION GAP 8 mmol/L (7-16); BUN 14 mg/dL (7-18); CHLORIDE 101 mmol/L (98-107); CO2 28 mmol/L (21-32); CREATININE 0.8 mg/dL (0.6-1.0); GLUCOSE 98 mg/dL (74-106); POTASSIUM 3.9 mmol/L (3.5-5.1); SODIUM 137 mmol/L (136-145)
[2017-04-20 15:44] LABS: ALBUMIN 3.5 g/dL (3.4-5.0); ALKALINE PHOSPHATASE 86 U/L (46-116); SGOT 27 U/L (15-37); SGPT 26 U/L (30-65); TOTAL BILIRUBIN 0.2 mg/dL (<0.1-1.0); TOTAL PROTEIN 7.3 g/dL (6.4-8.2); TROPONIN-I < 0.04 ng/mL (<0.04-0.07)
[2017-04-20 16:07] LABS: ABSOLUTE NEUTROPHILS 6.7 thou/uL (1.4-8.2); PLATELET ESTIMATE NORMAL; TOTAL CELL COUNT 100
[2017-04-20 17:01] VITALS: BP 146/74
== END 2017-04-20 17:03 | disposition home or self-care (01) ==
LOC: ER 14:40
PROVIDERS: Physician Assistant
DX: J06.9 Acute upper respiratory infection, unspecified (principal); I10 Essential (primary) hypertension; F32.9 Major depressive disorder, single episode, unspecified; F41.9 Anxiety disorder, unspecified; M19.90 Unspecified osteoarthritis, unspecified site; E03.9 Hypothyroidism, unspecified; J44.9 Chronic obstructive pulmonary disease, unspecified; F10.99 Alcohol use, unspecified with unspecified alcohol-induced disorder; Z98.890 Other specified postprocedural states

== ENCOUNTER 2017-05-01 18:27 | Emergency (ER) | payer OTHER, BC ==
[~2017-05-01] VITALS: Ht 149.9 cm; Wt 49.0 kg
[~2017-05-01 18:27] MED LIST changes: +UNICOMPLEX M TA1 TA1 PO
[2017-05-01] MEDS ORDERED: PROTONIX 20 MG20 M1 PO (20:49)
[2017-05-01] MEDS ORDERED: LASIX 20 MG TAB20 MG PO (20:50)
[2017-05-01] MEDS ORDERED: SULINDAC 200MG200 M1 PO (20:50)
[2017-05-01] MEDS ORDERED: ZINC30 MG PO (20:50)
[2017-05-01 22:03] VITALS: BP 154/76
== END 2017-05-01 22:10 | disposition short-term general hospital (02) ==
LOC: ER 18:27
DX: S12.001A Unspecified nondisplaced fracture of first cervical vertebra, initial encounter for closed fracture (principal); S12.101A Unspecified nondisplaced fracture of second cervical vertebra, initial encounter for closed fracture; S22.49XA Multiple fractures of ribs, unspecified side, initial encounter for closed fracture; I10 Essential (primary) hypertension; E03.9 Hypothyroidism, unspecified; M19.90 Unspecified osteoarthritis, unspecified site; F32.9 Major depressive disorder, single episode, unspecified; F41.9 Anxiety disorder, unspecified; F42.9 Obsessive-compulsive disorder, unspecified; M81.0 Age-related osteoporosis without current pathological fracture; J44.9 Chronic obstructive pulmonary disease, unspecified; K55.9 Vascular disorder of intestine, unspecified; F10.99 Alcohol use, unspecified with unspecified alcohol-induced disorder; Z86.2 Personal history of diseases of the blood and blood-forming organs and certain disorders involving the immune mechanism; Z86.73 Personal history of transient ischemic attack (TIA), and cerebral infarction without residual deficits; Z86.14 Personal history of Methicillin resistant Staphylococcus aureus infection; Z90.89 Acquired absence of other organs; W18.30XA Fall on same level, unspecified, initial encounter; Y93.01 Activity, walking, marching and hiking; Y92.89 Other specified places as the place of occurrence of the external cause; Y99.8 Other external cause status

== ENCOUNTER → 2017-11-15 | Outpatient (CLI) | payer OTHER, BC ==
[~2017-11-15] MED LIST changes: +LASIX 20 MG TAB20 MG PO; +PROTONIX 20 MG20 M1 PO; +ZINC30 MG PO
== END ==
LOC: HYPER 11-10 09:21
DX: L89.891 Pressure ulcer of other site, stage 1 (principal); R21 Rash and other nonspecific skin eruption; L84 Corns and callosities; I10 Essential (primary) hypertension; I73.9 Peripheral vascular disease, unspecified; E78.00 Pure hypercholesterolemia, unspecified; M81.0 Age-related osteoporosis without current pathological fracture; M19.90 Unspecified osteoarthritis, unspecified site; F41.9 Anxiety disorder, unspecified; F32.9 Major depressive disorder, single episode, unspecified; Z72.89 Other problems related to lifestyle

== ENCOUNTER → 2018-11-27 | Outpatient (CLI) | payer OTHER, BC | LOC: RAD 09:49 → SPEECH 09:49 → RAD 14:00 → EDSTATUS 14:02 | DX: R13.11 Dysphagia, oral phase (principal) ==

== ENCOUNTER → 2019-03-27 | Outpatient (CLI) | payer OTHER, BC | LOC: NUC 10:40 | DX: M81.0 Age-related osteoporosis without current pathological fracture (principal); M85.89 Other specified disorders of bone density and structure, multiple sites ==

== ENCOUNTER 2019-08-24 14:21 | Emergency (ER) | payer OTHER, BC ==
[~2019-08-24] VITALS: Ht 162.6 cm; Wt 72.6 kg
[2019-08-24 17:16] VITALS: BP 138/76
== END 2019-08-24 17:29 | disposition home or self-care (01) ==
LOC: ER 14:21
DX: S62.633A Displaced fracture of distal phalanx of left middle finger, initial encounter for closed fracture (principal); S00.83XA Contusion of other part of head, initial encounter; M25.521 Pain in right elbow; I10 Essential (primary) hypertension; E03.9 Hypothyroidism, unspecified; F42.9 Obsessive-compulsive disorder, unspecified; J44.9 Chronic obstructive pulmonary disease, unspecified; Z79.899 Other long term (current) drug therapy; Z79.82 Long term (current) use of aspirin; Z86.73 Personal history of transient ischemic attack (TIA), and cerebral infarction without residual deficits; W18.30XA Fall on same level, unspecified, initial encounter; Y93.89 Activity, other specified; Y92.89 Other specified places as the place of occurrence of the external cause; Y99.9 Unspecified external cause status

== ENCOUNTER 2019-11-17 15:23 | Emergency (ER) | payer OTHER, BC ==
[~2019-11-17] VITALS: Ht 142.2 cm; Wt 51.7 kg
[2019-11-17 17:02] VITALS: BP 137/73
== END 2019-11-17 17:02 | disposition home or self-care (01) ==
LOC: ER 15:23
DX: S01.81XA Laceration without foreign body of other part of head, initial encounter (principal); I10 Essential (primary) hypertension; E03.9 Hypothyroidism, unspecified; M81.0 Age-related osteoporosis without current pathological fracture; J44.9 Chronic obstructive pulmonary disease, unspecified; F32.9 Major depressive disorder, single episode, unspecified; F41.9 Anxiety disorder, unspecified; W19.XXXA Unspecified fall, initial encounter; Y93.89 Activity, other specified; Y92.89 Other specified places as the place of occurrence of the external cause; Y99.8 Other external cause status

== ENCOUNTER → 2020-05-20 | Outpatient (CLI) | payer OTHER, BC | LOC: SJCVCIMAG 09:13 | PROVIDERS: ATTEND Nuclear Medicine Nuclear Cardiology | DX: I70.203 Unspecified atherosclerosis of native arteries of extremities, bilateral legs (principal); R09.89 Other specified symptoms and signs involving the circulatory and respiratory systems; I10 Essential (primary) hypertension; E78.00 Pure hypercholesterolemia, unspecified; Z79.899 Other long term (current) drug therapy ==

== ENCOUNTER → 2020-06-05 | Outpatient (CLI) | payer OTHER, BC | LOC: HYPER 09:49 | PROVIDERS: ATTEND Emergency Medicine | DX: S81.802A Unspecified open wound, left lower leg, initial encounter (principal); L97.821 Non-pressure chronic ulcer of other part of left lower leg limited to breakdown of skin; I73.9 Peripheral vascular disease, unspecified; L84 Corns and callosities; R29.6 Repeated falls; R54 Age-related physical debility; E78.00 Pure hypercholesterolemia, unspecified; I73.89 Other specified peripheral vascular diseases; M81.0 Age-related osteoporosis without current pathological fracture; I10 Essential (primary) hypertension; M19.90 Unspecified osteoarthritis, unspecified site; E03.9 Hypothyroidism, unspecified; I25.10 Atherosclerotic heart disease of native coronary artery without angina pectoris; F41.9 Anxiety disorder, unspecified; F32.9 Major depressive disorder, single episode, unspecified; Z86.14 Personal history of Methicillin resistant Staphylococcus aureus infection; Z90.89 Acquired absence of other organs; Z98.49 Cataract extraction status, unspecified eye; Z79.82 Long term (current) use of aspirin; X58.XXXA Exposure to other specified factors, initial encounter; Y93.89 Activity, other specified; Y92.89 Other specified places as the place of occurrence of the external cause; Y99.8 Other external cause status ==

== ENCOUNTER → 2020-06-17 | Outpatient (CLI) | payer OTHER, BC | LOC: HYPER 09:51 | PROVIDERS: ATTEND Emergency Medicine | DX: L97.821 Non-pressure chronic ulcer of other part of left lower leg limited to breakdown of skin (principal); R54 Age-related physical debility; E78.00 Pure hypercholesterolemia, unspecified; E03.9 Hypothyroidism, unspecified; I73.9 Peripheral vascular disease, unspecified; I10 Essential (primary) hypertension; I25.10 Atherosclerotic heart disease of native coronary artery without angina pectoris; K21.9 Gastro-esophageal reflux disease without esophagitis; M19.90 Unspecified osteoarthritis, unspecified site; M81.0 Age-related osteoporosis without current pathological fracture; F41.9 Anxiety disorder, unspecified; F32.9 Major depressive disorder, single episode, unspecified ==

== ENCOUNTER 2021-02-20 13:01 | Emergency (ER) | payer OTHER, BC ==
[~2021-02-20] VITALS: Ht 142.2 cm; Wt 50.8 kg
[2021-02-20] MEDS ORDERED: CARBAMAZEPINE100 M2 PO (15:38)
[2021-02-20] MEDS ORDERED: TYLENOL325 M1 PO (15:38)
[2021-02-20 15:45] VITALS: BP 175/69
== END 2021-02-20 15:45 | disposition home or self-care (01) ==
LOC: ER 13:01
DX: G44.099 Other trigeminal autonomic cephalgias (TAC), not intractable (principal); I10 Essential (primary) hypertension; Z79.82 Long term (current) use of aspirin; Z79.899 Other long term (current) drug therapy; Z86.73 Personal history of transient ischemic attack (TIA), and cerebral infarction without residual deficits

== ENCOUNTER → 2021-05-26 | Outpatient (CLI) | payer OTHER, BC ==
[~2021-05-26] MED LIST changes: +CARBAMAZEPINE100 M2 PO; +TYLENOL325 M1 PO
== END ==
LOC: SJCVCIMAG 08:17
PROVIDERS: ATTEND Nuclear Medicine Nuclear Cardiology
DX: I70.203 Unspecified atherosclerosis of native arteries of extremities, bilateral legs (principal); I10 Essential (primary) hypertension; E78.00 Pure hypercholesterolemia, unspecified; R06.00 Dyspnea, unspecified; R09.89 Other specified symptoms and signs involving the circulatory and respiratory systems; R26.9 Unspecified abnormalities of gait and mobility; R55 Syncope and collapse; E03.9 Hypothyroidism, unspecified; M81.0 Age-related osteoporosis without current pathological fracture; Z79.82 Long term (current) use of aspirin; Z79.899 Other long term (current) drug therapy; Z82.49 Family history of ischemic heart disease and other diseases of the circulatory system

== ENCOUNTER → 2021-06-16 | Outpatient (CLI) | payer OTHER, BC | LOC: SJCVCIMAG 07:45 | PROVIDERS: ATTEND Internal Medicine | DX: I10 Essential (primary) hypertension (principal); E78.00 Pure hypercholesterolemia, unspecified; E03.9 Hypothyroidism, unspecified; Z79.82 Long term (current) use of aspirin; Z79.899 Other long term (current) drug therapy; Z88.8 Allergy status to other drugs, medicaments and biological substances; Z72.89 Other problems related to lifestyle ==

== ENCOUNTER → 2021-07-08 | Outpatient (CLI) | payer OTHER, BC | LOC: SJCVC 10:52 | PROVIDERS: ATTEND Internal Medicine | DX: R06.00 Dyspnea, unspecified (principal); I10 Essential (primary) hypertension; E78.00 Pure hypercholesterolemia, unspecified; E03.9 Hypothyroidism, unspecified; Z72.89 Other problems related to lifestyle; Z88.8 Allergy status to other drugs, medicaments and biological substances; Z79.82 Long term (current) use of aspirin; Z79.899 Other long term (current) drug therapy ==

== ENCOUNTER → 2021-07-29 | Outpatient (CLI) | payer OTHER, BC | LOC: SJCVC 10:04 | PROVIDERS: ATTEND Internal Medicine | DX: I10 Essential (primary) hypertension (principal); R06.00 Dyspnea, unspecified; E78.00 Pure hypercholesterolemia, unspecified; E03.9 Hypothyroidism, unspecified; I73.9 Peripheral vascular disease, unspecified; Z88.8 Allergy status to other drugs, medicaments and biological substances; Z79.82 Long term (current) use of aspirin; Z79.899 Other long term (current) drug therapy; Z72.89 Other problems related to lifestyle ==